=== PATIENT | male | born 1940 | race Caucasian/White ===

== ENCOUNTER 2016-03-13 10:31 | Day surgery (SDC) | payer MEDICARE, BC ==
[~2016-03-13] VITALS: Ht 180.3 cm; Wt 80.2 kg
[~2016-03-13 10:31] MED LIST: ALBUTEROL SULFAT3 M3 IH; ASPIRIN 81M81 MG/TA2 PO; ASPIRIN E.C. 8181 MG PO; BACTRIM DS 8001 TAB PO; BETAPACE 80MG80 MG PO; CEFTIN500 MG PO; CLARITIN 1010 MG/TAB PO; COUMADIN 5MG5 MG/TAB PO; COZAAR50 MG PO; DOXYCYCLINE 10100 MG PO; DOXYCYCLINE HY100 MG PO; DULCOLAX S10 MG/SUPP RC; FIBERCON625 MG PO; FISH OIL500 MG PO; FLOMAX 0.40.4 MG/CAP PO; FLOMAX0.4 MG PO; FLONASE NASAL S16 GM NS; LANOXIN 0.120.125 MG PO; LASIX 20MG TABL20 MG PO; LEVAQUIN 750MG750 M1 PO; LOVENOX 100100 MG/ML SQ; MILK OF MA400 MG/52; MIRALAX PA17 GM/Dose PO; NORCO 325 MG-51 TAB PO; NORCO 325 MG-7.1 TAB PO; OMNICEF 300MG300 MG PO; OXY IR5 MG; PERCOCET 325 MG1 TA2 PO; PROBIOTIC FORMU1 CAP PO; PROTONIX 40MG T40 MG PO; ROCEPHIN V500 MG/VIA IJ; TYLENOL 325MG325 MG PO; ULTRAM 50MG TAB50 MG PO; UROXATRAL10 MG PO; ZEBETA 5MG5 MG PO; probiotic
[2016-03-13 11:27] VITALS: BP 139/54; PULSE 78; TEMP 97.9
[2016-03-13] MEDS ORDERED: PROBIOTIC FORMU1 CAP PO (11:45)
[2016-03-13] MEDS ORDERED: DOXYCYCLINE 10100 MG PO (11:46)
[2016-03-13 14:15] VITALS: BP 126/49; PULSE 71; TEMP 97.7
[2016-03-13 14:29] VITALS: TEMP 97.7
[2016-03-13 14:30] VITALS: BP 125/47; PULSE 63
[2016-03-13] MEDS ORDERED: NORCO 325 MG-51 TAB PO (14:30)
[2016-03-13 14:45] VITALS: BP 116/50; PULSE 67
[2016-03-13 15:00] VITALS: BP 115/48; PULSE 65
== END 2016-03-13 15:45 | disposition home or self-care (01) ==
LOC: SDCO 10:31
DX: D12.1 Benign neoplasm of appendix (principal)
CPT/HCPCS: J0690; J1100; J2270; J2405; J2704; J3010; J7030; J7120

== ENCOUNTER → 2016-09-28 | Outpatient (CLI) | payer MEDICARE, BC ==
[2016-09-28 16:31] LABS: HEMOGLOBIN 12.1 g/dl (13.5-18.0); MEAN CELL VOLUME 92 fl (80.0-100.0); MEAN CORPUSCULAR HEMOGLOBIN 31 pg (27.0-31.0); MEAN CORPUSCULAR HGB CONC 34 g/dl (33.0-37.0); MEAN PLATELET VOLUME 8.9 fl (7.4-10.4); PLATELET COUNT 209 K/mm3 (130-400); RED BLOOD COUNT 3.91 M/mm3 (4.20-5.60); REDCELL DISTRIBUTION WIDTH-CV 18.1 % (11.5-14.5); WHITE BLOOD COUNT 2.7 K/mm3 (4.8-10.8)
[2016-09-28 16:35] LABS: ADD PATHOLOGY DIFF REVIEW NO; TOTAL CELLS COUNTED 0
[2016-09-28 16:37] LABS: ADJUSTED CALCIUM 8.7 mg/dL (8.4-10.2); ALBUMIN 4.2 gm/dL (3.5-5.0); BILIRUBIN,TOTAL 1.5 mg/dL (0.0-1.0); CALCIUM 8.9 mg/dL (8.4-10.2); CREATININE, serum 0.91 mg/dL (0.66-1.25); POTASSIUM 4.2 mmol/L (3.4-5.0)
[2016-09-28 16:57] LABS: ERYTHROCYTE SEDIMENTATION RATE 16 mm/hr (0-30)
== END ==
LOC: COL.LAB 15:33
PROVIDERS: Internal Medicine
DX: M79.1 Myalgia (principal); R53.1 Weakness; Z95.2 Presence of prosthetic heart valve

== ENCOUNTER → 2016-10-09 | Outpatient (CLI) | payer MEDICARE, BC | LOC: COL.VAS 14:27 | DX: I08.3 Combined rheumatic disorders of mitral, aortic and tricuspid valves (principal); I28.8 Other diseases of pulmonary vessels; R50.9 Fever, unspecified; R53.1 Weakness; Z95.2 Presence of prosthetic heart valve ==

== ENCOUNTER → 2018-04-08 | Outpatient (CLI) | payer MEDICARE, BC ==
[~2018-04-08] MED LIST changes: +BETAPACE 120MG120 MG PO; +NATURAL IRON65 MG PO; +UREX1 GM PO; +ZITHROMAX 250M250 MG PO
== END ==
LOC: COL.RAD 14:17
DX: N40.0 Benign prostatic hyperplasia without lower urinary tract symptoms (principal); R16.1 Splenomegaly, not elsewhere classified; R59.0 Localized enlarged lymph nodes; Z90.89 Acquired absence of other organs
CPT/HCPCS: Q9967

== ENCOUNTER → 2018-10-31 | Outpatient (CLI) | payer MEDICARE, BC | LOC: COL.RAD 10:05 | DX: C91.10 Chronic lymphocytic leukemia of B-cell type not having achieved remission (principal); M43.8X4 Other specified deforming dorsopathies, thoracic region; R91.1 Solitary pulmonary nodule; R16.1 Splenomegaly, not elsewhere classified; N40.0 Benign prostatic hyperplasia without lower urinary tract symptoms; R59.0 Localized enlarged lymph nodes; N28.1 Cyst of kidney, acquired; S32.020A Wedge compression fracture of second lumbar vertebra, initial encounter for closed fracture; Z90.49 Acquired absence of other specified parts of digestive tract ==

== ENCOUNTER → 2019-07-06 | Outpatient (CLI) | payer MEDICARE, BC | LOC: COL.RAD 06-08 08:00 | DX: C91.10 Chronic lymphocytic leukemia of B-cell type not having achieved remission (principal); M84.68XA Pathological fracture in other disease, other site, initial encounter for fracture; J94.8 Other specified pleural conditions; G31.9 Degenerative disease of nervous system, unspecified; N40.0 Benign prostatic hyperplasia without lower urinary tract symptoms; N28.9 Disorder of kidney and ureter, unspecified; R16.1 Splenomegaly, not elsewhere classified ==

== ENCOUNTER 2020-03-21 14:08 | Emergency (ER) | payer MEDICARE, BC ==
[~2020-03-21] VITALS: Ht 180.3 cm; Wt 84.1 kg
[2020-03-21 14:18] VITALS: TEMP 97.5
[2020-03-21 14:34] LABS: MEAN CELL VOLUME 94 fl (80.0-100.0); MEAN CORPUSCULAR HGB CONC 33 g/dl (33.0-37.0); MEAN PLATELET VOLUME 11.7 fl (7.4-10.4); PLATELET COUNT 181 K/mm3 (130-400); RED BLOOD COUNT 6.08 M/mm3 (4.20-5.60); REDCELL DISTRIBUTION WIDTH-CV 14.5 % (11.5-14.5)
[2020-03-21 14:38] LABS: HEMATOCRIT 57.2 % (42.0-52.0); HEMOGLOBIN 19.1 g/dl (13.5-18.0); MEAN CORPUSCULAR HEMOGLOBIN 31 pg (27.0-31.0)
[2020-03-21 14:43] LABS: INR 0.9 (0.8-3.0); PROTHROMBIN TIME 10.5 SECONDS (9.7-12.8)
[2020-03-21 14:44] LABS: ALBUMIN 4.7 gm/dL (3.5-5.0); BILIRUBIN,TOTAL 1.4 mg/dL (0.0-1.0); CALCIUM 9.3 mg/dL (8.4-10.2); CREATININE, serum 1.16 (0.66-1.25); POTASSIUM 4.2 mmol/L (3.4-5.0)
[2020-03-21 14:46] LABS: PARTIAL THROMBOPLASTIN TIME 29.8 SECONDS (26.0-37.0)
[2020-03-21 14:55] LABS: TROPONIN-I 0.017 ng/mL (0.000-0.035)
[2020-03-21 15:03] LABS: BAND 1 % (0-10); EOSINOPHIL 1 % (0-4); LYMPHOCYTE 12 % (20.0-51.0); NEUTROPHILS 58 % (42.0-75.2); PLATELET ESTIMATE NORMAL (NORMAL)
[2020-03-21 15:14] LABS: TSH w REFLEX 5.91 uIU/mL (0.465-4.680)
[2020-03-21 17:30] VITALS: BP 130/77; PULSE 105
== END 2020-03-21 17:54 | disposition home or self-care (01) ==
LOC: COL.ER 14:08
PROVIDERS: Family Medicine
DX: R00.0 Tachycardia, unspecified (principal); I25.10 Atherosclerotic heart disease of native coronary artery without angina pectoris; Z88.8 Allergy status to other drugs, medicaments and biological substances; Z79.82 Long term (current) use of aspirin

== ENCOUNTER 2020-03-24 07:49 | Day surgery (SDC) | payer MEDICARE, BC ==
[~2020-03-24] VITALS: Ht 180.3 cm; Wt 85.6 kg
[2020-03-24] MEDS ORDERED: LASIX 20MG TABL20 MG PO (08:39)
[2020-03-24] MEDS ORDERED: ZAROXOLYN 2.52.5 MG PO (08:39)
[2020-03-24] MEDS ORDERED: TYLENOL 325MG325 MG PO (08:40)
[2020-03-24 08:42] LABS: MEAN CELL VOLUME 93 fl (80.0-100.0); MEAN CORPUSCULAR HGB CONC 34 g/dl (33.0-37.0); PLATELET COUNT 154 K/mm3 (130-400); RED BLOOD COUNT 5.76 M/mm3 (4.20-5.60); REDCELL DISTRIBUTION WIDTH-CV 14.2 % (11.5-14.5)
[2020-03-24] MEDS ORDERED: GENTAMICIN I40 MG/ML (08:42)
[2020-03-24] MEDS ORDERED: MUCINEX 60600 MG/TA1 PO (08:43)
[2020-03-24 08:44] LABS: HEMATOCRIT 53.6 % (42.0-52.0); HEMOGLOBIN 18.2 g/dl (13.5-18.0); MEAN CORPUSCULAR HEMOGLOBIN 32 pg (27.0-31.0)
[2020-03-24] MEDS ORDERED: CLARITIN 1010 MG/TAB PO (08:44)
[2020-03-24] MEDS ORDERED: IMBRUVICA280 MG PO (08:44)
[2020-03-24] MEDS ORDERED: ANTIVERT 25MG25 MG PO (08:45)
[2020-03-24] MEDS ORDERED: TOPROL XL 25MG25 MG PO (08:46)
[2020-03-24] MEDS ORDERED: K-DUR20 MEQ PO (08:47)
[2020-03-24 08:48] VITALS: BP 166/79; PULSE 92; TEMP 97.4
[2020-03-24 08:51] LABS: CALCIUM 9.1 mg/dL (8.4-10.2); CREATININE, serum 1.26 (0.66-1.25); MAGNESIUM 2.1 mg/dL (1.6-2.3); POTASSIUM 3.6 mmol/L (3.4-5.0)
[2020-03-24 08:52] LABS: PROTHROMBIN TIME 11.2 SECONDS (9.7-12.8)
[2020-03-24 09:21] LABS: THYROID STIMULATING HORMONE 6.25 uIU/mL (0.465-4.680)
[2020-03-24 10:55] VITALS: BP 115/64; PULSE 63
[2020-03-24 11:15] VITALS: BP 132/85; PULSE 94
[2020-03-24 11:30] VITALS: BP 137/76; PULSE 59
[2020-03-24] MEDS ORDERED: COUMADIN 5MG5 MG/TAB PO (11:38)
[2020-03-24] MEDS ORDERED: BETAPACE 80MG80 MG PO (11:38)
[2020-03-24] MEDS ORDERED: LOVENOX 8080 MG/0.8 SQ (11:39)
[2020-03-24 11:45] VITALS: BP 132/69; PULSE 62
--- NOTE | 2020-03-24 12:40 | NUR ---
Pt care was assumed at 1055. pt was awake and alert, pwd, NSR on monitor rate 60's. pt denied any concerns initially, however did develop a scratchy throat later. I advised pt to eat a smooth diet until this sx improved. repeat ekg has been obtained. Pt remained in NSR throughout his recovery. We reviewed instructions together regarding dc/fu, new prescriptions and med changes. I gave pt information about lovenox and coumadin. Pt denied any questions at time of departure. He has been able to drink with no problem, has been up to br and is steady on feet. IV dc'd with cath intact, dressing applied. pt to exit via wheelchair.
== END 2020-03-24 13:27 | disposition home or self-care (01) ==
LOC: COL.CAR 07:49
PROVIDERS: Internal Medicine Cardiovascular Disease
DX: I48.91 Unspecified atrial fibrillation (principal); Z95.2 Presence of prosthetic heart valve; I10 Essential (primary) hypertension; E78.5 Hyperlipidemia, unspecified; D64.9 Anemia, unspecified; Z85.72 Personal history of non-Hodgkin lymphomas; Z85.6 Personal history of leukemia; K21.9 Gastro-esophageal reflux disease without esophagitis; M19.90 Unspecified osteoarthritis, unspecified site; I47.1 Supraventricular tachycardia; Z85.828 Personal history of other malignant neoplasm of skin; Z88.1 Allergy status to other antibiotic agents; Z88.3 Allergy status to other anti-infective agents; Z88.7 Allergy status to serum and vaccine; Z88.8 Allergy status to other drugs, medicaments and biological substances; Z79.51 Long term (current) use of inhaled steroids; Z87.891 Personal history of nicotine dependence; Z79.82 Long term (current) use of aspirin; I08.1 Rheumatic disorders of both mitral and tricuspid valves
CPT/HCPCS: J1650; J2704; J7030

== ENCOUNTER → 2020-03-27 | Outpatient (CLI) | payer MEDICARE, BC ==
[~2020-03-27] MED LIST changes: +ANTIVERT 25MG25 MG PO; +GENTAMICIN I40 MG/ML; +IMBRUVICA280 MG PO; +K-DUR20 MEQ PO; +LOVENOX 8080 MG/0.8 SQ; +MUCINEX 60600 MG/TA1 PO; +TOPROL XL 25MG25 MG PO; +ZAROXOLYN 2.52.5 MG PO
[2020-03-27 12:22] LABS: INR 1.2 (0.8-3.0); PROTHROMBIN TIME 13.1 SECONDS (9.7-12.8)
== END ==
LOC: COL.LAB 11:05
PROVIDERS: Internal Medicine Adult Congenital Heart Disease
DX: I48.0 Paroxysmal atrial fibrillation (principal); Z01.89 Encounter for other specified special examinations

== ENCOUNTER 2020-09-20 08:05 | Day surgery (SDC) | payer MEDICARE, BC ==
[~2020-09-20] VITALS: Ht 180.3 cm; Wt 87.5 kg
[2020-09-20] VITALS (7 sets, daily range): BP systolic 113–134; BP diastolic 68–92; PULSE 50–92
[2020-09-20 08:58] LABS: BASO # 0.1 (0.0-0.2); BASO % 0.7 % (0.0-2.0); EOS # 0.2 (0.0-0.7); EOS % 2.3 % (0-4.0); GRAN # 5.3 (1.4-6.5); GRAN % 71.1 % (42.2-75.2); HEMATOCRIT 50.5 % (42.0-52.0); HEMOGLOBIN 16.1 g/dl (13.5-18.0); LYMPH # 0.9 (1.2-3.4); LYMPH % 12.8 % (20.0-51.0); MEAN CELL VOLUME 93 fl (80.0-100.0); MEAN CORPUSCULAR HEMOGLOBIN 30 pg (27.0-31.0); MEAN CORPUSCULAR HGB CONC 32 g/dl (33.0-37.0); MONO # 0.9 (0.1-0.6); MONO % 12.8 % (1.7-9.3); PLATELET COUNT 139 K/mm3 (130-400); RED BLOOD COUNT 5.42 M/mm3 (4.20-5.60)
[2020-09-20 09:08] LABS: INR 2.5 (0.8-3.0); PROTHROMBIN TIME 27.8 SECONDS (9.7-12.8)
[2020-09-20 09:09] LABS: CALCIUM 9.2 mg/dL (8.4-10.2); CREATININE, serum 1.07 (0.66-1.25); MAGNESIUM 2.1 mg/dL (1.6-2.3); POTASSIUM 4.4 mmol/L (3.4-5.0)
[2020-09-20 09:11] LABS: PARTIAL THROMBOPLASTIN TIME 34.7 SECONDS (26.0-37.0)
[2020-09-20] MEDS ORDERED: BETAPACE 120MG120 MG PO (09:42)
[2020-09-20] MEDS ORDERED: LANOXIN 0.120.125 MG PO (09:43)
[2020-09-20] MEDS ORDERED: COUMADIN 5MG5 MG/TAB PO (09:43)
[2020-09-20 09:48] LABS: THYROID STIMULATING HORMONE 3.79 uIU/mL (0.465-4.680)
--- NOTE | 2020-09-20 10:20 | NUR ---
PT AWAKE AND ALERT, NSR ON MONITOR, RATE 50'S. ECHO IN PROGRESS.
--- NOTE | 2020-09-20 10:50 | NUR ---
REPEAT EKG IN PROGRESS. PT REMAINS AWAKE AND ALERT.
--- NOTE | 2020-09-20 11:29 | NUR ---
Pt dressed and amb to br with steady gait. ready for discharge. I have reviewed dc and rx instructions with pt, he verbalizes understanding. ic dc'd with cath intact. to exit via wheelchair at 1142
== END 2020-09-20 11:42 | disposition home or self-care (01) ==
LOC: COL.CAR 08:05
PROVIDERS: Internal Medicine Cardiovascular Disease
DX: I48.0 Paroxysmal atrial fibrillation (principal); I10 Essential (primary) hypertension; I34.0 Nonrheumatic mitral (valve) insufficiency; D64.9 Anemia, unspecified; E78.5 Hyperlipidemia, unspecified; N39.0 Urinary tract infection, site not specified; K21.9 Gastro-esophageal reflux disease without esophagitis; M19.90 Unspecified osteoarthritis, unspecified site; Z90.89 Acquired absence of other organs; Z79.899 Other long term (current) drug therapy; Z85.828 Personal history of other malignant neoplasm of skin; Z85.6 Personal history of leukemia; Z79.01 Long term (current) use of anticoagulants; Z87.891 Personal history of nicotine dependence; Z80.6 Family history of leukemia; Z82.3 Family history of stroke; Z80.9 Family history of malignant neoplasm, unspecified
CPT/HCPCS: J2704

== ENCOUNTER → 2021-08-03 | Outpatient (CLI) | payer MEDICARE, BC | LOC: COL.VAS 07:27 | DX: M79.89 Other specified soft tissue disorders (principal) ==

== ENCOUNTER 2021-08-14 07:59 | Day surgery (SDC) | payer MEDICARE, BC ==
[~2021-08-14] VITALS: Ht 177.8 cm; Wt 86.0 kg
[2021-08-14] VITALS (8 sets, daily range): BP systolic 115–136; BP diastolic 72–92; PULSE 81–104; TEMP 97.8
[~2021-08-14 07:59] MED LIST changes: +PROBIOTIC-MAJOR PO
[2021-08-14] MEDS ORDERED: ZEBETA10 MG PO (09:13)
[2021-08-14] MEDS ORDERED: TYLENOL 325MG325 MG PO (09:13)
[2021-08-14] MEDS ORDERED: AMOXICILLIN 50500 MG PO (09:14)
[2021-08-14] MEDS ORDERED: ATROVENTNS0.03% NS (09:14)
[2021-08-14 09:15] LABS: HEMATOCRIT 45.4 % (42.0-52.0); MEAN CELL VOLUME 88 fl (80.0-100.0); MEAN CORPUSCULAR HEMOGLOBIN 29 pg (27-31); MEAN CORPUSCULAR HGB CONC 33 g/dl (33.0-37.0); MEAN PLATELET VOLUME 11.9 fl (7.4-10.4); PLATELET COUNT 138 K/mm3 (130-400); RED BLOOD COUNT 5.19 M/mm3 (4.20-5.60)
[2021-08-14] MEDS ORDERED: CLARITIN 1010 MG/TAB PO (09:16)
[2021-08-14 09:30] LABS: INR 1.2 (0.8-3.0); PROTHROMBIN TIME 13.7 SECONDS (9.7-12.8)
[2021-08-14 09:32] LABS: PARTIAL THROMBOPLASTIN TIME 29.5 SECONDS (26.0-37.0)
[2021-08-14] MEDS ORDERED: ZAROXOLYN 2.52.5 MG PO (09:32)
[2021-08-14 09:34] LABS: CALCIUM 9.5 mg/dL (8.4-10.2); CREATININE, serum 1.65 mg/dL (0.72-1.25); POTASSIUM 3.5 mmol/L (3.5-4.5)
--- NOTE | 2021-08-14 15:44 | NUR ---
Dr. Solis in to see pt at this time.
[2021-08-14] MEDS ORDERED: MEXITIL 150MG150 MG PO (16:42)
--- NOTE | 2021-08-14 17:00 | NUR ---
Discharge instructions have been recieved, printed and reviewed with pt. Pt verbalizes understanding, and denies questions at this time. Pt is amb to exit with neighbor, gait is steady with a cane.
== END 2021-08-14 21:07 | disposition home or self-care (01) ==
LOC: COL.CAR 07:59
PROVIDERS: Internal Medicine Cardiovascular Disease
DX: I47.1 Supraventricular tachycardia (principal); Z53.9 Procedure and treatment not carried out, unspecified reason; Z85.828 Personal history of other malignant neoplasm of skin; Z95.828 Presence of other vascular implants and grafts
CPT/HCPCS: A9500; J2785

== ENCOUNTER 2021-10-24 15:45 | Inpatient (IN) | payer MEDICARE, BC ==
[~2021-10-24] VITALS: Ht 177.8 cm; Wt 37.2 kg
[2021-10-24] VITALS (259 sets, daily range): BP systolic 54–163; BP diastolic 37–113; PULSE 60–117; TEMP 94.8; O2SAT 35–100
[~2021-10-24 15:45] MED LIST changes: +AMOXICILLIN 50500 MG PO; +ATROVENTNS0.03% NS; +MEXITIL 150MG150 MG PO; +ZEBETA10 MG PO
[2021-10-24 16:14] LABS: BASO % 0.2 % (0.0-2.0); GRAN # 9.4 K/mm3 (1.4-6.5); GRAN % 81.7 % (42.2-75.2); HEMATOCRIT 51.7 % (42.0-52.0); HEMOGLOBIN 16.2 g/dl (13.5-18.0); LYMPH # 0.8 K/mm3 (1.2-3.4); LYMPH % 7.1 % (20.0-51.0); MEAN CELL VOLUME 89 fl (80.0-100.0); MEAN CORPUSCULAR HEMOGLOBIN 28 pg (27-31); MEAN CORPUSCULAR HGB CONC 31 g/dl (33.0-37.0); MONO # 1.2 K/mm3 (0.1-0.6); MONO % 10.6 % (1.7-9.3); PLATELET COUNT 138 K/mm3 (130-400); RED BLOOD COUNT 5.83 M/mm3 (4.20-5.60); REDCELL DISTRIBUTION WIDTH-CV 22.3 % (11.5-14.5)
[2021-10-24 16:26] LABS: ALBUMIN 3.5 gm/dL (3.4-4.8); BILIRUBIN,TOTAL 4.4 mg/dL (0.2-1.2); CALCIUM 9.6 mg/dL (8.4-10.2); CREATININE, serum 3.29 mg/dL (0.72-1.25); POTASSIUM 5.6 mmol/L (3.5-4.5); TOTAL PROTEIN 6.4 gm/dL (6.2-8.1)
--- NOTE | 2021-10-24 18:00 | NUR ---
PT ARRIVED TO ICU ROOM 5 FROM ED. UPON PT ARRIVING PT CYANOTIC, HYPOTENSIVE, ALTERED MENTAL STATUS. MONITOR SHOWS VENTRICULAR RHYTHM IN 160S.DR DELCID PAGED TO PTS ROOM. DR. DELCID ARRIVES AND EVALUATES PT. STATES RHTHYM IS NOT LETHAL AND PTS UNSTABLE STATUS IS DUE TO RESPIRATORY DISTRESS. SHERRILL GUPTA ARRIVES AT APPROX. 1810. SP02 NOTED TO BE IN 60S. ANESTHESIA PAGED FOR STAT INTUBATION. PTS CONDITION DISCUSSED WITH FAMILY. FAMILY WOULD LIKE TO PROCEED WITH INTUBATION, BUT MADE PT DNR. ANESTHESIA ARRIVED AT 1825. 1830 SIZE 8 ET TUBE. 24 AT TEETH.
[2021-10-24 18:21] LABS: ARTERIAL BLD GAS O2 SATURATION 95.7 % (92-100); ARTERIAL BLD GAS TCO2 CT 10.8; ARTERIAL BLOOD GAS BASE EXCESS -15.9 (-2-2); ARTERIAL BLOOD GAS PCO2 25.7 mmHg (35-45); ARTERIAL BLOOD GAS PO2 99.4 mmHg (80-100); ARTERIAL BLOOD GAS pH 7.21 (7.35-7.45)
--- NOTE | 2021-10-24 19:13 | NUR ---
EPINEPHERINE TURNED OFF AT THIS TIME PER DR. KAPADIA
--- NOTE | 2021-10-24 19:45 | NUR ---
BEDSIDE SHIFT REPORT GIVEN TO FANY CURIEL. PT STABILIZED BUT REMAINS CRITICAL.
[2021-10-24 19:58] LABS: ARTERIAL BLD GAS O2 SATURATION 99.7 % (92-100); ARTERIAL BLD GAS TCO2 CT 9.5; ARTERIAL BLOOD GAS BASE EXCESS -15.5 (-2-2); ARTERIAL BLOOD GAS HCO3 8.9 meq/L (22-26); ARTERIAL BLOOD GAS pH 7.27 (7.35-7.45)
[2021-10-24 19:59] LABS: ARTERIAL BLOOD GAS PCO2 19.6 mmHg (35-45); ARTERIAL BLOOD GAS PO2 387.2 mmHg (80-100)
--- NOTE | 2021-10-24 20:00 | NUR ---
BEDSIDE REPORT RECEIVED FROM CANDY LOVETT, RN AND KRISTIE QUINN, RN. AT TIME OF SHIFT CHANGE, DR. MOODY IN ROOM TO PLACE R FEMORAL CENTRAL LINE AND DR. KAPADIA IN ROOM TO PLACE L FEMORAL ARTERIAL LINE. PT RECENTLY INTUBATED, VENT SETTINGS CURRENTLY R 24, TV 550, FI02 100, PEEP 8, MODE A/C. SIZE 8.0 ET TUBE 24 AT TEETH. OG TUBE PLACED BY KRISTIE TO 65CM, SET TO LIS. GREEN/BROWN DRAINAGE IN TUBE. PER DAY SHIFT RNS, LOPES CATHETER ATTEMPTED TO PLACE X2, UNABLE. THIS RN WILL ATTEMPT WITH COUDE TIP CATHETER THIS SHIFT. LEVOPHED, VASOPRESSIN, AND EPINEPHRINE INFUSING AND TITRATING PER DR. KAPADIA'S VERBAL ORDERS IN ROOM. PT RECEIVING LR BOLUSES AND MAGNESIUM 2 GM. FAMILY IN WAITING ROOM, UPDATED BY DR. KAPADIA AND SHERRILL HENDRIX. BILAT WRIST RESTRAINTS PLACED AT THIS TIME FOR PT'S SAFETY AND LINE AND TUBE PRESERVATION, WILL REASSESS NEED THROUGHOUT SHIFT. FEET CYANOTIC, AND UNABLE TO FIND PEDAL PULSES WITH DOPPLER AT THIS TIME. WILL CONTINUE TO MONITOR.
[2021-10-24 20:25] LABS: BASO % 0.2 % (0.0-2.0); GRAN # 8.9 K/mm3 (1.4-6.5); GRAN % 80.9 % (42.2-75.2); HEMATOCRIT 47.7 % (42.0-52.0); HEMOGLOBIN 14.6 g/dl (13.5-18.0); LYMPH # 0.5 K/mm3 (1.2-3.4); LYMPH % 4.9 % (20.0-51.0); MEAN CELL VOLUME 91 fl (80.0-100.0); MEAN CORPUSCULAR HEMOGLOBIN 28 pg (27-31); MEAN CORPUSCULAR HGB CONC 31 g/dl (33.0-37.0); MONO # 1.4 K/mm3 (0.1-0.6); MONO % 13.1 % (1.7-9.3); PLATELET COUNT 107 K/mm3 (130-400); RED BLOOD COUNT 5.26 M/mm3 (4.20-5.60); REDCELL DISTRIBUTION WIDTH-CV 22.2 % (11.5-14.5)
[2021-10-24 20:37] LABS: ALBUMIN 2.8 gm/dL (3.4-4.8); BILIRUBIN,TOTAL 4.7 mg/dL (0.2-1.2); CALCIUM 8.2 mg/dL (8.4-10.2); MAGNESIUM 3.2 mg/dL (1.6-2.6); POTASSIUM 5.5 mmol/L (3.5-4.5); TOTAL PROTEIN 5.1 gm/dL (6.2-8.1)
[2021-10-24 20:45] LABS: TROPONIN-I 0.09 ng/mL (0.00-0.033)
--- NOTE | 2021-10-24 21:00 | NUR ---
BAIKEKEUGGER PLACED ON PT ON MEDIUM SETTING RECTAL TEMP READING 94.8. SHERRILL HENDRIX AWARE. ALSO THREE RN'S ATTEMPTED TO PLACE LOPES CATHETER, INCLUDING WITH COUDE TIP UNSUCCESSFULLY. MALE LIBERTY CATH PLACED AND WILL PLACE UROLOGY CONSULT PER SHERRILL GUPTA.
[2021-10-24 23:22] LABS: PROTHROMBIN TIME 58.9 SECONDS (9.7-12.8)
[2021-10-25] VITALS (232 sets, daily range): BP systolic 84–156; BP diastolic 46–74; PULSE 60–61; TEMP 95.5–99; O2SAT 56–100
--- NOTE | 2021-10-25 04:29 | NUR ---
FURTHER DECREASE IN PERIPHERIAL PULSES. RECENT INCREASE IN LEVOPHED RATE FROM 0.43 TP 0.7 TO GET MAP ABOVE 65. PT REMAINS UNRESPONSIVE TO PAINFUL STIMULI. DISCUSSED WITH SHERRILL HENDRIX. WILL CONTINUE TITRATIONS NEEDED AND PLAN TO CALL FAMILY WITH UPDATE THIS AM.
--- NOTE | 2021-10-25 04:51 | NUR ---
BLADDER SCAN SHOWS 318ML IN BLADDER, NO FURTHER ACTION AT THIS TIME.
[2021-10-25 05:21] LABS: HEMATOCRIT 48.6 % (42.0-52.0); HEMOGLOBIN 14.3 g/dl (13.5-18.0); MEAN CELL VOLUME 95 fl (80.0-100.0); MEAN CORPUSCULAR HEMOGLOBIN 28 pg (27-31); MEAN CORPUSCULAR HGB CONC 29 g/dl (33.0-37.0); PLATELET COUNT 80 K/mm3 (130-400); RED BLOOD COUNT 5.12 M/mm3 (4.20-5.60); REDCELL DISTRIBUTION WIDTH-CV 22.2 % (11.5-14.5)
[2021-10-25 05:23] LABS: ARTERIAL BLD GAS O2 SATURATION 97.9 % (92-100); ARTERIAL BLD GAS TCO2 CT 7.4; ARTERIAL BLOOD GAS BASE EXCESS -20.1 (-2-2); ARTERIAL BLOOD GAS HCO3 6.7 meq/L (22-26); ARTERIAL BLOOD GAS PO2 118.9 mmHg (80-100)
[2021-10-25 05:24] LABS: ARTERIAL BLOOD GAS pH 7.15 (7.35-7.45)
[2021-10-25 05:38] LABS: ALBUMIN 2.6 gm/dL (3.4-4.8); CALCIUM 7.9 mg/dL (8.4-10.2); CREATININE, serum 3.43 mg/dL (0.72-1.25); MAGNESIUM 2.9 mg/dL (1.6-2.6); PHOSPHOROUS 8.4 mg/dL (2.3-4.7)
--- NOTE | 2021-10-25 05:42 | NUR ---
DISCUSSED PT'S ABG RESULTS WITH SHERRILL HENDRIX. ALSO CALLED PT'S SON, MACIEJ AT THIS TIME AND UPDATED WITH HAPPENINGS OF THIS SHIFT, INCLUDING LOW TEMP, INCREASE IN LEVOPHED NEEDS, LOW BLOOD GLUCOSE, DECREASED PH ON ABG, DECREASED PULSES AND MOTTLING OF FEET. SON STATES UNDERSTANDING, PLAN TO COME IN WITH FAMILY AT 0800.
[2021-10-25 05:45] LABS: INR 6.1 (0.8-3.0); PROTHROMBIN TIME 71.6 SECONDS (9.7-12.8)
--- NOTE | 2021-10-25 05:52 | NUR ---
PT'S INR 6.1, IN DISCUSSION WITH PT'S SON, SOUNDS LIKE FAMILY MAY LEAN TOWARDS COMFORT OR LESS AGGRESSIVE CARE THIS AM WHEN THEY ARE ABLE TO ARRIVE. WILL HOLD OFF ON CALLING DR. PARKINSON FOR LOPES PLACEMENT TO DECREASE FURTHER INVASIVE INTERVENTIONS AND BLEEDING POTENTIAL.
--- NOTE | 2021-10-25 06:05 | NUR ---
DISCUSSED LABS WITH DR. VELAZQUEZ FROM [facility]. AGREED NOT TO TREAT HIGH INR AT THIS TIME PT IS HAVING NO ACTIVE BLEEDING. ASKED TO BE UPDATED IF FAMILY DECIDES TO BE MORE AGGRESSIVE OR IF POC CHANGES.
[2021-10-25 06:27] LABS: ANISOCYTOSIS 3+; BAND 4 % (0-10); HYPOCHROMIA 3+; LYMPHOCYTE 5 % (20.0-51.0); NEUTROPHILS 83 % (42.0-75.2); PLATELET ESTIMATE DECREASED (NORMAL)
--- NOTE | 2021-10-25 06:58 | NUR ---
WHEN PUSHING MEDS AT 0625, PT OPENED EYES TO VOICE. FROM THAT TIME, PT OPENING EYES TO COMMAND. SQUEEZED HAND ON COMMAND AND WIGGLED TOES. ABLE TO DECREASED LEVOPHED DOSAGE.
--- NOTE | 2021-10-25 08:00 | NUR ---
PT ASSESSMENT COMPLETED AT THIS TIME. PT OPENS EYES TO SPEECH BUT DOES NOT MAKE PURPOSFUL MOVEMENTS. PTS FAMILY WILL BE IN SOMETIME THIS MORNING TO DISCUSS FUTURE PLANS.
--- NOTE | 2021-10-25 08:45 | NUR ---
PTS FAMILY MET WITH DR. KAPADIA. DR. KAPADIA VERBALIZED PTS CONDITION AND OPTIONS AVAILABLE FOR THE PT. FAMILY HAS DECIDED TO GO FORWARD WITH COMFORT CARE MEASURES. FAMILY WANTS TO TAKE SOME TIME TO PROCESS BEFORE INITIATION OF COMFORT TREATMENTS. WILL CONTINUE WITH TREATMENTS ORDERED UNTIL FAMILY IS READY.
--- NOTE | 2021-10-25 10:45 | NUR ---
FAMILY STATED THEY WERE READY TO INITIATE COMFORT MEASURES. AT THIS TIME ALL IV MEDICATIONS WERE STOPPED AND DISCONNECTED. MORPHINE AND ATIVAN GIVEN PRIOR TO EXTUBATION FOR PAIN, AIR HUNGER, AND ANXIETY. RT GARY DISCONNECTED PT FROM VENTILATOR AND REMOVED ETT.
--- NOTE | 2021-10-25 10:55 | NUR ---
PTS VITALS CEASED. NO HEART SOUNDS AUSCULTATED. NO PULSES PALPABLE. FANY GUPTA CONFIRMED ABSENT HEART SOUNDS AND NO PALPABLE PULSES. FAMILY NOTIFIED.
--- NOTE | 2021-10-25 11:17 | NUR ---
Met with sons, Lang and Erlin, at bedside prior to extubation. They had no questions stating the physicians have done a good job explaining everything. They found the patient's DNR and end-of-life wishes and arrangments. They request once the patient passes to [facility] [employer]. Family at bedside, provided with my contact information.
--- NOTE | 2021-10-25 12:52 | NUR ---
BODY LEFT THE UNIT WITH HOME AT THIS TIME.
== END 2021-10-25 12:52 | disposition expired | DRG 871 ==
LOC: COL.ER 15:45 → ICU 16:41
PROVIDERS: Family Medicine; Student in an Organized Health Care Education/Training Program; ADMIT Internal Medicine
PROC: 0BH17EZ Insertion of Endotracheal Airway into Trachea, Via Natural or Artificial Opening (ICD-10-PCS; principal; 2021-10-24)
PROC: 5A1935Z Respiratory Ventilation, Less than 24 Consecutive Hours (ICD-10-PCS; 2021-10-24)
PROC: 04HY32Z Insertion of Monitoring Device into Lower Artery, Percutaneous Approach (ICD-10-PCS; 2021-10-24)
PROC: 4A133B1 Monitoring of Arterial Pressure, Peripheral, Percutaneous Approach (ICD-10-PCS; 2021-10-24)
PROC: 4A133J1 Monitoring of Arterial Pulse, Peripheral, Percutaneous Approach (ICD-10-PCS; 2021-10-24)
PROC: 06HY33Z Insertion of Infusion Device into Lower Vein, Percutaneous Approach (ICD-10-PCS; 2021-10-24)
PROC: 3E043XZ Introduction of Vasopressor into Central Vein, Percutaneous Approach (ICD-10-PCS; 2021-10-24)
DX: A41.9 Sepsis, unspecified organism (principal); R65.21 Severe sepsis with septic shock; J96.01 Acute respiratory failure with hypoxia; I21.A1 Myocardial infarction type 2; N17.9 Acute kidney failure, unspecified; Z66 Do not resuscitate; J91.8 Pleural effusion in other conditions classified elsewhere; Z51.5 Encounter for palliative care; E87.2 Acidosis; I48.92 Unspecified atrial flutter; J98.11 Atelectasis; I47.1 Supraventricular tachycardia; I48.20 Chronic atrial fibrillation, unspecified; D68.9 Coagulation defect, unspecified; E16.2 Hypoglycemia, unspecified; N40.0 Benign prostatic hyperplasia without lower urinary tract symptoms; I95.9 Hypotension, unspecified; E87.5 Hyperkalemia; I25.10 Atherosclerotic heart disease of native coronary artery without angina pectoris; R57.0 Cardiogenic shock; E78.5 Hyperlipidemia, unspecified; L40.9 Psoriasis, unspecified; I08.1 Rheumatic disorders of both mitral and tricuspid valves; I45.10 Unspecified right bundle-branch block; K21.9 Gastro-esophageal reflux disease without esophagitis; I50.9 Heart failure, unspecified; T68.XXXA Hypothermia, initial encounter; D69.6 Thrombocytopenia, unspecified; Z79.01 Long term (current) use of anticoagulants; Z90.89 Acquired absence of other organs; Z90.49 Acquired absence of other specified parts of digestive tract; Z88.8 Allergy status to other drugs, medicaments and biological substances; Z91.041 Radiographic dye allergy status; Z95.4 Presence of other heart-valve replacement; Z87.01 Personal history of pneumonia (recurrent); Z95.0 Presence of cardiac pacemaker; Z87.891 Personal history of nicotine dependence; Z85.6 Personal history of leukemia; Z87.19 Personal history of other diseases of the digestive system; Z85.828 Personal history of other malignant neoplasm of skin; Z23 Encounter for immunization
CPT/HCPCS: J0171; J0282; J0610; J1200; J1815; J2060; J2250; J2270; J2543; J2704; J3370; J3475; J7030; J7050; J7060; J7120; J7121